=== PATIENT | male | born 1980 | race Caucasian/White ===

== ENCOUNTER 2016-07-06 20:41 | Emergency (ER) | payer OTHER ==
[~2016-07-06] VITALS: Ht 180.3 cm; Wt 129.0 kg
[2016-07-06 21:41] VITALS: BP 152/90
--- NOTE | 2016-07-06 22:52 | NUR ---
Patient to bed 08.
--- NOTE | 2016-07-06 22:55 | NUR ---
35 Y/O M W/C/O SORE THROAT/STUFFING NOSE/CHEST CONGESTION, YELLOW PHLEM,CHEST BACK PAIN WHILE BREATING AND CHILLS X 3 DAYS. PT ON MONITOR, TACHY 135, WHEEZES NOTED BILATERAL, LABORED BREATHING. ER MD NOTIFIED.
[2016-07-06] MEDS ORDERED: NACL 0.9% 1,000 ML IV ONE (23:00)
--- NOTE | 2016-07-06 23:01 | NUR ---
Dr. Johns evaluating patient at bedside.
[2016-07-06] MEDS ORDERED: AMOXICILLIN 500 MG CAP PO ONE (23:05)
[2016-07-06] MEDS ORDERED: methylPREDNISolone SS 125 MG in WATER STERILE 2 ML IV ONE (23:05)
[2016-07-06] MEDS ORDERED: ALBUTEROL SULFATE/IPRATROPIU 3 ML SOL IH ONE ×2 (23:05→23:50)
--- NOTE | 2016-07-06 23:36 | NUR ---
PT RESTING IN BED, NO MORE WHEEZES PRESENT AT THE MOMENT, PT VERBALIZED TO FEEL BETTER. WILL CONT TO MONITOR.
--- NOTE | 2016-07-06 23:44 | NUR ---
XRAY at bedside.
--- NOTE | 2016-07-06 23:59 | NUR ---
RT at bedside for breathing treatment.
[2016-07-07 00:15] VITALS: BP 144/92
--- NOTE | 2016-07-07 00:15 | NUR ---
PER ER MD PT STABLE FOR discharged. NO S/S OF RESP DISTRESS AT THE MOMENT. ER MD AWARE OF VS. Written and verbal after care instructions given and explained. Patient alert, oriented and verbalized understanding of instructions. Ambulatory with steady gait. All questions addressed prior to discharge. ID band removed. Patient advised to follow up with PMD TOMORROW, OR RETURN TO ER IF CONDITION WORSENS. Rx of PREDNISONE, AZITHROMYCIN AND ALBUTEROL given. Patient educated on indication of medication including possible reaction and side effects. Opportunity to ask questions provided and answered.
== END 2016-07-07 00:15 | disposition home or self-care (01) ==
LOC: MED 20:41
DX: J20.9 Acute bronchitis, unspecified (principal)
CPT/HCPCS: 71010; 94640; 96361; 96374; 99284; J2930; J7030; J7620; Q0092